=== PATIENT | male | born 1955 | race Caucasian/White ===

== ENCOUNTER 2020-07-15 06:55 | Outpatient (NON) | payer BC, SELFPAY ==
[2020-07-15 16:41] LABS: SARS-CoV-2 RNA PCR Positive
== END 2020-07-15 06:56 ==
PROVIDERS: Visit Provider Family Medicine
DX: U07.1 COVID-19 (principal)
CPT/HCPCS: 87635; C9803; U0003

== ENCOUNTER 2021-11-24 00:43 | Day surgery (SDC) | payer BC, SELFPAY ==
[2021-11-14 14:44] VITALS: BMI 26.1
--- NOTE | 2021-11-24 11:33 | PM.HPGS ---
History of Present Illness History of Present Illness Consent: Risks, benefits, and alternatives have been discussed and questions answered. Patient agrees to proceed with procedure. Chief complaint: neoplasm screening Narrative: Stefan Becerra is a 66 year old male Was referred for colon cancer screening. Review of Systems Review of Systems: All systems reviewed & are unremarkable except as noted in HPI and below PMFSH Past Medical History Medical History A-fib SVT (supraventricular tachycardia) Family History Family History Mother Cerebrovascular accident, Onset Age: 84 Unknown Cancer Social History Social History Smoking status: Never smoker Alcohol intake: current Drinks per week: 2 Substance use: never Living arrangements: with family Spiritual care concerns: No Meds Home Medications and Allergies Home Medications Medication Instructions Recorded Confirmed Type rivaroxaban 20 mg tablet 20 mg PO DAILY 10/21/21 11/14/21 History sotalol 80 mg tablet 80 mg PO BID tablet 10/21/21 11/14/21 History Allergies Allergy/AdvReac Type Severity Reaction Status Date / Time No Known Allergies Allergy Verified 11/14/21 14:42 Exam Resp: Auscultation: clear to auscultation bilaterally Cardio: Rate: regular rate Rhythm: regular rhythm GI: GI Palp: Yes Soft to palpation and No Tenderness to palpation present (GI) Assessment and Plan Assessment and plan (1) Colon cancer screening: Code(s): Z12.11 - Encounter for screening for malignant neoplasm of colon Status: Acute Assessment and Plan: Colonoscopy with possible biopsy or polypectomy or cautery or injection of substances.
[2021-11-24 11:55] VITALS: BP 118/79; PULSE 72; RESP 16; TEMP 36.4; O2SAT 100
[2021-11-24] MEDS: LACTATED RINGERS 1,000 ML 150 ML IV CONT (11:59)
--- NOTE | 2021-11-24 12:19 | P.PNAN_ITS ---
Anes - Initial Pre Proc Eval Procedure: Operation Date: 11/24/21 13:00 Proposed Procedures p Screening Colonoscopy - Hollis Leiva MD Date/Time: 11/24/21 12:19 Surgeon: Hollis Leiva MD Pre Op Diagnosis: neoplasm screening Patient Data Age: 66 Gender: M Height: 1.8 m Weight: 85.5 kg Last Vital Signs Temp 97.6 F 11/24/21 11:55 Pulse 72 11/24/21 11:55 Resp 16 11/24/21 11:55 BP 118/79 11/24/21 11:55 Pulse Ox 100 11/24/21 11:55 Allergies Allergy/AdvReac Type Severity Reaction Status Date / Time No Known Allergies Allergy Verified 11/14/21 14:42 Home Medications Medication Instructions Recorded Confirmed Type rivaroxaban 20 mg tablet 20 mg PO DAILY 10/21/21 11/24/21 History sotalol 80 mg tablet 80 mg PO BID tablet 10/21/21 11/24/21 History Patient hx anesthesia problems: none Family hx anesthesia problems: none Results Review: All pre-operative results and documents have been reviewed as part of the pre-operative evaluation. [facility] Past Medical History Medical History A-fib SVT (supraventricular tachycardia) Family History Family History Mother Cerebrovascular accident, Onset Age: 84 Unknown Cancer Social History Social History Smoking status: Never smoker Alcohol intake: current Drinks per week: 2 Substance use: never Living arrangements: with family Spiritual care concerns: No Anes - Eval Final PreProcedure Day of Procedure 11/24/21 12:19 Patient weight: normal Heart: regular rate and rhythm Lungs: clear to auscultation Airway: Mallampati scale class II Neurological: alert and oriented Last oral intake: >/= 8 hours ASA classification: III Emergent: no Anesthetic plan: proceed Anesthesia type and monitoring: general GIVS and standard monitoring Results Review: All pre-operative results and documents have been reviewed as part of the pre-operative evaluation. Informed Consent: The patient's anesthetic plan and its attendant risks and benefits were discussed with the patient/family/POA. Questions were solicited and answers provided to the satisfaction of the patient/family/POA.
[2021-11-24 13:09] VITALS: BP 99/66; PULSE 64; RESP 16; O2SAT 96
[2021-11-24 13:19] VITALS: BP 94/65; PULSE 70; RESP 16; O2SAT 95
[2021-11-24 13:24] VITALS: BP 105/68; PULSE 66; RESP 16; O2SAT 100
== END 2021-11-24 13:33 | disposition home or self-care (01) ==
PROVIDERS: PCP Family Medicine; Visit Provider Internal Medicine Gastroenterology
PROC: 0DJD8ZZ Inspection of Lower Intestinal Tract, Via Natural or Artificial Opening Endoscopic (ICD-10-PCS; CPT 45378; principal; 2021-11-24 13:00)
DX: Z12.11 Encounter for screening for malignant neoplasm of colon (principal); D12.0 Benign neoplasm of cecum; K62.1 Rectal polyp; K57.30 Diverticulosis of large intestine without perforation or abscess without bleeding; I48.91 Unspecified atrial fibrillation; I47.1 Supraventricular tachycardia; Z79.01 Long term (current) use of anticoagulants
CPT/HCPCS: 45385; 88305; J2704; J7120

== ENCOUNTER 2021-12-12 07:56 | Outpatient (CLI) | payer BC, SELFPAY ==
--- NOTE | 2021-12-12 08:45 | ECG_ITS ---
Measurements Intervals [place] Rate: 52 P: 41 IN: 173 QRS: 29 QRSD: 98 T: 3 QT: 411 QTc: 383 Interpretive Statements SINUS BRADYCARDIA NONSPECIFIC ST AND T CHANGE ABNORMAL ECG NO PREVIOUS ECG AVAILABLE FOR COMPARISON Electronically Signed On 12-12-2021 15:23:07 CDT by Candelario Garcia M.D.
== END 2021-12-12 07:57 | disposition home or self-care (01) ==
LOC: ANHSURGERY 08:00
PROVIDERS: PCP Family Medicine; Visit Provider Surgery
DX: Z01.818 Encounter for other preprocedural examination (principal); K40.20 Bilateral inguinal hernia, without obstruction or gangrene, not specified as recurrent; I49.9 Cardiac arrhythmia, unspecified; R94.31 Abnormal electrocardiogram [ECG] [EKG]
CPT/HCPCS: 36415; 86850; 86900; 86901; 93005

== ENCOUNTER 2021-12-16 01:13 | Day surgery (SDC) | payer BC, SELFPAY ==
--- NOTE | 2021-12-03 15:21 | PC.NURSE ---
Report to the Outpatient Waiting Room, entrance under the green pavilion located off [facility], at time _0930_ on date _12/16/21_. OR Time: _1130_. - You and your visitor will be asked a series of questions to screen for COVID 19 for your protection. - A mask is required within the hospital. One visitor will be allowed to accompany the patient into the hospital. Patients visitor will be instructed to remain with patient at all times or leave the building. We will allow the visitor to come back to the postoperative area when patient is ready. Preoperative COVID Testing Requirements: NONE Patients may have clear liquids (water, carbonated beverages, clear teas, apple juice) until 3 hours prior to surgery (0830 AM) with a maximum of 20 ounces. - No food from midnight until time of surgery Take the following medications with a SIP of water the morning of surgery: _SOTALOL_ Medications to discontinue __ XARELTO PER DR. MARTINEZ'S INSTRUCTIONS___ Please no deodorant, or body powder the day of surgery. No jewelry (including any body piercings) or valuables the day of surgery, leave them at home. Please take a shower or bath the night before, or the morning of, surgery with an antibacterial soap. Wear comfortable, loose fitting clothing. - Jewelry must be removed prior to entering the operating room. Rings and piercings that are not removed may be cut off. - The hospital will not accept responsibility for valuables. - Please leave all valuables, including medications, at home the day of surgery. If you are going home after surgery, a licensed taxi cab driver must drive you home. - NO public transportation without another adult. - We recommend that an adult stay with you for 24 hours following discharge. - We also recommend that you do not drive, make important decision, drink alcoholic beverages, or take any drugs that were not prescribed by your health care provider for at least 24 hours after your discharge time. Follow any additional instructions given to you from your surgeon - ERMELINDA SHOWCHARIS AM OF SURGERY Telephone instructions given to ____PT and asked if any additional questions and then verbalized understanding. Patient advised to call surgeon office or pre surgery nurse liaison [phone] if any additional questions.
[2021-12-03 15:25] VITALS: BMI 26.2
[2021-12-16] VITALS (8 sets, daily range): BP systolic 119–137; BP diastolic 73–88; PULSE 58–69; RESP 13–18; TEMP 36.8–36.9; O2SAT 95–100
[2021-12-16] MEDS: LACTATED RINGERS 1,000 ML 30 ML IV CONT ×3 (09:00→14:24)
--- NOTE | 2021-12-16 10:00 | P.PNAN_ITS ---
Anes - Initial Pre Proc Eval Procedure: Operation Date: 12/16/21 11:30 Proposed Procedures p Laparoscopic Bilateral Inguinal Hernia Repair with Mesh, Davinci Assisted - Ranulfo Ness DO s Open Umbilical Hernia Repair - Rnaulfo Ness DO Date/Time: 12/16/21 10:00 Surgeon: Ranulfo Ness DO Pre Op Diagnosis: Baldev Ing Hernia, Umbilical Hernia Patient Data Age: 66 Gender: M Height: 1.8 m Weight: 85.5 kg Allergies Allergy/AdvReac Type Severity Reaction Status Date / Time No Known Allergies Allergy Verified 11/14/21 14:42 Home Medications Medication Instructions Recorded Confirmed Type rivaroxaban 20 mg tablet 20 mg PO DAILY 10/21/21 12/03/21 History sotalol 80 mg tablet 80 mg PO BID tablet 10/21/21 12/03/21 History Patient hx anesthesia problems: none Family hx anesthesia problems: none Results Review: All pre-operative results and documents have been reviewed as part of the pre-operative evaluation. [facility] Past Medical History Medical History (Updated 11/24/21 @ 11:34 by Hollis Leiva MD) A-fib SVT (supraventricular tachycardia) Surgical History Surgical History (Updated 12/16/21 @ 10:01 by Miguel Olmos DO) History of cardiac radiofrequency ablation Family History Family History Mother Cerebrovascular accident, Onset Age: 84 Unknown Cancer Social History Social History Smoking status: Never smoker Second hand tobacco smoke exposure: No Alcohol intake: current Drinks per week: 2 Substance use: never Substance use type: does not use Living arrangements: with family Spiritual care concerns: No Anes - Eval Final PreProcedure Day of Procedure 12/16/21 10:00 Patient weight: overweight Heart: regular rate and rhythm Lungs: clear to auscultation and normal air movement Airway: Mallampati scale class II Neurological: alert and oriented Last oral intake: >/= 8 hours ASA classification: III Emergent: no Anesthetic plan: proceed Anesthesia type and monitoring: general ETT and standard monitoring Results Review: All pre-operative results and documents have been reviewed as part of the pre-operative evaluation. Informed Consent: The patient's anesthetic plan and its attendant risks and benefits were discussed with the patient/family/POA. Questions were solicited and answers provided to the satisfaction of the patient/family/POA.
[2021-12-16] MEDS: KETOROLAC 15 MG/ML VIAL (*BKC) IV PUSH (10:05)
[2021-12-16] MEDS: ACETAMINOPHEN 500 MG TABLET 1000 MG PO (10:05)
--- NOTE | 2021-12-16 10:56 | PM.IMHP ---
H&P: HPI History of Present Illness Date/Time: 12/16/21 10:56 Chief Complaint: Bilateral inguinal hernia, umbilical hernia Narrative: This is a 66-year-old man who presents for bilateral inguinal hernia repair and umbilical hernia repair. He denies any changes since last seen in the office. Review of Systems Review of Systems: All systems reviewed & are unremarkable except as noted in HPI and below Constitutional: Constitutional: Denies chills, Denies fever(s), Denies headache(s) and Denies weight loss Eyes: Eyes: Denies change in vision ENT: Denies dizziness, Denies headache(s), Denies neck mass and Denies throat swelling Cardiovascular: Cardiovascular: Denies chest pain, Denies lightheadedness and Denies dyspnea Respiratory: Respiratory: Denies cough, Denies dyspnea and Denies wheezing Gastrointestinal: Gastrointestinal: Denies abdominal pain, Denies change in bowel habits, Denies nausea and Denies vomiting Genitourinary: Genitourinary: Denies hematuria and Denies dysuria Musculoskeletal: Musculoskeletal: Reports as per HPI Integumentary/Breasts: Skin/Breast: Reports as per HPI Neurologic: Denies dizziness and Denies headache(s) Allergic/Immunologic: Allergic/Immunologic: Denies throat swelling and Denies wheezing PMFSH Past Medical History Medical History (Updated 11/24/21 @ 11:34 by Hollis Leiva MD) A-fib SVT (supraventricular tachycardia) Surgical History Surgical History (Updated 12/16/21 @ 10:01 by Miguel Olmos DO) History of cardiac radiofrequency ablation Family History Family History Mother Cerebrovascular accident, Onset Age: 84 Unknown Cancer Social History Social History Smoking status: Never smoker Second hand tobacco smoke exposure: No Alcohol intake: current Drinks per week: 2 Substance use: never Substance use type: does not use Living arrangements: with family Spiritual care concerns: No Meds Home Medications and Allergies Home Medications Medication Instructions Recorded Confirmed Type rivaroxaban 20 mg tablet 20 mg PO DAILY 10/21/21 12/16/21 History sotalol 80 mg tablet 80 mg PO BID tablet 03/01/22 04/26/22 History Allergies Allergy/AdvReac Type Severity Reaction Status Date / Time No Known Allergies Allergy Verified 11/14/21 14:42 Vital Signs Vital Signs - 24 hr 12/16/21 09:15 Temperature 36.8 C Pulse Rate 58 L Respiratory Rate 16 Blood Pressure 129/73 Pulse Oximetry 100 Exam Const: General: no acute distress and alert Orientation/consciousness: patient oriented x3 HENMT: Head: normocephalic and atraumatic Ears: hearing grossly normal bilaterally General nose exam: Normal nares present Mouth: Yes Normal oral and palatal mucosa present Eyes: Periorbital: periorbital findings normal Sclera: sclerae normal EOM: EOMs intact bilaterally Neck: Neck: normal visual inspection, no lymphadenopathy and trachea midline Chest: Chest palpation & inspection: normal inspection of the chest Resp: Effort & Inspection: normal respiratory effort Auscultation: clear to auscultation bilaterally Cardio: Jugular venous distension: no JVD Rate: regular rate Rhythm: regular rhythm Heart sounds: S1 normal heart sound present and S2 normal heart sound present Peripheral pulses: Peripheral pulses 2+ throughout GI: Inspection: normal to inspection GI Palp: Yes Soft to palpation, No Tenderness to palpation present (GI), No Guarding due to palpation present (GI), Yes Hernia present (1 cm umbilical hernia) and No Rebound tenderness present Percussion: Yes normal to percussion Auscultation: normal bowel sounds : General: Yes no CVA tenderness Scrotum: inguinal hernia bilateral Back/Spine/Pelvis: Back: no CVA tenderness Neuro: General: patient oriented x3, no focal motor deficits and CN's II-XI intact onel
--- NOTE | 2021-12-16 10:58 | WPDHPUPDATE1 ---
History and Physical Update Update Date/Time: 12/16/21 10:58 History and Physical has been reviewed, including an updated exam of the patient. There are NO changes in the patient's condition. Risks, benefits, and alternatives have been discussed and questions answered. Patient agrees to proceed with procedure.
[2021-12-16] MEDS: ceFAZolin 2 GM/D5W 50 ML 2 GM/50 ML BAG IVPB (11:26)
--- NOTE | 2021-12-16 13:10 | W.PM.PROC2 ---
Procedure Note - Detailed Date of Procedure 12/16/21 Pre-op Diagnosis Bilateral inguinal hernia, umbilical hernia Post-op Diagnosis Same Procedure Performed 1. Laparoscopic bilateral inguinal hernia repair with mesh, da Binh assisted 2. Open umbilical hernia repair Surgeon Ranulfo Ness, Anesthesia General and Local (0.5% bupivacaine with epinephrine) Indications This is a 66-year-old man who presented with a right groin bulge that he had noticed initially about 10 years ago. It was minimally symptomatic at the time but has recently become more symptomatic. It does reduce when he lays down. He was found to have a left inguinal hernia on physical exam but does not experience any symptoms from this. The hernia on the right side was large but reducible. He was also found to have a small supraumbilical hernia on exam. Discussions were made with the patient about treatment options and decision was made to proceed with robotic assisted laparoscopic bilateral inguinal hernia repair with mesh, and open umbilical hernia repair. Findings Laparoscopic bilateral inguinal hernia repair was performed. The patient was found to have a large direct inguinal defect on the right side and had a moderate-sized direct inguinal defect on the left. An extra-large right 3DMax mid mesh was placed on the right side overlying the entire right myopectineal orifice. A large left 3DMax mid was placed on the left side overlying the entire left myopectineal orifice. The umbilical hernia measured about 8 mm and this was repaired using 0 Ethibond [id number] sutures. A total of 3 sutures were placed transversely to approximate the fascia. The umbilical hernia sac was excised and sent to the lab for pathology. Description of Procedure Procedure as well as risks, benefits, and alternatives were discussed with the patient. Written consent was obtained and placed in chart prior to procedure. Patient was brought back to surgical suite. He was placed supine on operating table. Time-out was done to confirm patient and procedure. He was then intubated by Anesthesia Department. His abdomen was prepped and draped in sterile fashion using chlorhexidine prep. 0.5% bupivacaine with epinephrine was infiltrated at each location for incision. A 2 cm transverse incision was made just superior to the umbilicus using a 15 blade scalpel. Blunt dissection was carried out down to the linea alba. The hernia sac was carefully dissected free from the umbilical skin and subcutaneous space using electrocautery. The hernia sac was excised at the level of the fascia. The peritoneal cavity was then entered through the hernia defect and an 8 mm camera port was inserted. Carbon dioxide insufflation was used to create a pneumoperitoneum. A camera was inserted and the abdominal cavity was inspected. The patient was placed in slight Trendelenburg position. An 8 millimeter incision was made on the right lateral abdomen and an 8 millimeter trocar was inserted under direct visualization. Another 8 millimeter incision was made in the left lateral abdomen and an 8 millimeter trocar was inserted under direct visualization. The robotic arms were brought up to the patient's bedside and secured to the ports. The camera and instruments were inserted. I then moved over to the robotic console and took control of the camera and instruments. After careful inspection of the abdominal cavity, I began scoring the peritoneum along the right lower quadrant using scissors with electrocautery. The preperitoneal plane was entered and this was carefully dissected caudally along the inferior epigastric vessels. Careful dissection with scissors with electrocautery and blunt dissection was used to continue this dissection. I dissected far enough laterally to allow for mesh placement, and also dissected medially to identify the pubic arch and Rudy's ligament. The hernia sac was identified and carefully dissected posteriorly.
[2021-12-16] MEDS: fentaNYL CITRATE INJ (*CRX) 100 MCG/2 ML VIAL 25 MCG IV PUSH ×4 (13:40→13:54)
[2021-12-16] MEDS: ONDANSETRON INJ 4 MG/2 ML VIAL IV PUSH (14:20)
[2021-12-16] MEDS: SCOPOLAMINE 1.5 MG PATCH TRANSDERM (14:41)
== END 2021-12-16 15:17 | disposition home or self-care (01) ==
PROVIDERS: PCP Family Medicine; Visit Provider Surgery
PROC: 8E0Y4CZ Robotic Assisted Procedure of Lower Extremity, Percutaneous Endoscopic Approach (ICD-10-PCS; CPT 49650; principal; 2021-12-16 11:30)
PROC: (CPT 49650; 2021-12-16 11:30)
DX: K40.20 Bilateral inguinal hernia, without obstruction or gangrene, not specified as recurrent (principal); K42.9 Umbilical hernia without obstruction or gangrene; I48.91 Unspecified atrial fibrillation; I47.1 Supraventricular tachycardia; Z79.01 Long term (current) use of anticoagulants
CPT/HCPCS: 49650; S2900; 88302; A9270; C1781; J0690; J1100; J1885; J2405; J2704; J2710; J3010; J7120

== ENCOUNTER 2023-08-11 08:14 | Outpatient (CLI) | payer MEDICARE, SELFPAY ==
[2023-08-11 19:02] LABS: Basophils Percent Auto 0.4 % (0.2-1.2); Eosinophils Absolute Auto 0.3 K/mm3 (0-0.3); Eosinophils Percent Auto 4.5 % (0-4.4); Hematocrit 43.2 % (42.0-52.0); Immature Granulocyte Absolute 0.05 K/mm3 (0.00-0.031); Immature Granulocyte Percent A 0.7 % (0-0.5); Lymphocytes Absolute Auto 0.96 K/mm3 (0.9-3.2); Lymphocytes Percent Auto 13.6 % (18.3-44.2); Mean Corpuscular HGB Conc 32.4 g/dl (32-36); Mean Corpuscular Hemoglobin 30.8 pg (26-34); Mean Corpuscular Volume 94.9 fl (80-100); Mean Platelet Volume 9.6 fl (7.4-10.4); Monocytes Absolute Auto 1.2 K/mm3 (0.1-0.6); Monocytes Percent Auto 16.9 % (2.6-8.5); Neutrophils Absolute Auto 4.5 K/mm3 (1.3-6.7); Neutrophils Percent Auto 63.9 % (45.5-73.1); Platelet Count Result 602 k/mm3 (150-375); Red Blood Count 4.55 M/mm3 (4.6-6.20); White Blood Count 7.1 K/mm3 (4.5-10.0)
[2023-08-11 19:41] LABS: Alanine Aminotransferase 45 U/L (6-50); Albumin Level 4.4 g/dL (3.5-5.1); Alkaline Phosphatase 52 U/L (38-126); Anion Gap 5 mmol/L (8-16); Aspartate Amino Transferase 40 U/L (17-59); Bilirubin,Total 0.8 mg/dL (0.2-1.3); Blood Urea Nitrogen 19 mg/dL (9-20); Calcium 9.8 mg/dL (8.4-10.2); Carbon Dioxide 30 mmol/L (22-30); Chloride 101 mmol/L (98-107); Cholesterol 185 mg/dL (0-200); Estimated Glomerular Filt Rate > 60; Glucose 78 mg/dL (65-110); HDL Direct 43 mg/dL; Potassium 4.8 mmol/L (3.4-5.0); Sodium 136 mmol/L (137-145); Triglycerides 130 mg/dL (<150)
[2023-08-11 19:53] LABS: LDL Cholesterol Direct 102 mg/dL
[2023-08-11 20:10] LABS: Prostate Specific Antigen 6.4 ng/mL (< OR = 4.0)
== END 2023-08-11 08:15 | disposition home or self-care (01) ==
LOC: ANHGOSHLAB 08:15
PROVIDERS: PCP Family Medicine; Visit Provider Family Medicine
DX: Z13.220 Encounter for screening for lipoid disorders (principal); R53.83 Other fatigue; Z12.5 Encounter for screening for malignant neoplasm of prostate; Z13.228 Encounter for screening for other metabolic disorders; E78.5 Hyperlipidemia, unspecified
CPT/HCPCS: 36415; 80053; 80061; 84153; 85025; G0103

== ENCOUNTER 2023-09-15 10:05 | Outpatient (CLI) | payer OTHER, SELFPAY ==
[2023-09-15 14:02] LABS: Basophils Percent Auto 0.3 % (0.2-1.2); Eosinophils Absolute Auto 0.3 K/mm3 (0-0.3); Eosinophils Percent Auto 4.8 % (0-4.4); Hematocrit 44.7 % (42.0-52.0); Hemoglobin 14.3 g/dL (14.0-18.0); Immature Granulocyte Absolute 0.02 K/mm3 (0.00-0.031); Immature Granulocyte Percent A 0.3 % (0-0.5); Lymphocytes Absolute Auto 0.86 K/mm3 (0.9-3.2); Lymphocytes Percent Auto 13.7 % (18.3-44.2); Mean Corpuscular Hemoglobin 30.4 pg (26-34); Mean Corpuscular Volume 94.9 fl (80-100); Mean Platelet Volume 9.6 fl (7.4-10.4); Monocytes Percent Auto 15.1 % (2.6-8.5); Neutrophils Absolute Auto 4.1 K/mm3 (1.3-6.7); Neutrophils Percent Auto 65.8 % (45.5-73.1); Platelet Count Result 588 k/mm3 (150-375); Red Blood Count 4.71 M/mm3 (4.6-6.20); Red Cell Distribution Width 12.9 % (11.5-14.5); White Blood Count 6.3 K/mm3 (4.5-10.0)
[2023-09-15 15:49] LABS: Prostate Specific Antigen 5.3 ng/mL (< OR = 4.0)
== END 2023-09-15 10:06 | disposition home or self-care (01) ==
LOC: ANHGOSHLAB 10:08
PROVIDERS: PCP Family Medicine; Visit Provider Family Medicine
DX: R97.20 Elevated prostate specific antigen [PSA] (principal); R53.83 Other fatigue
CPT/HCPCS: 36415; 84153; 85025

== ENCOUNTER 2024-03-21 09:43 | Outpatient (CLI) | payer MEDICARE, SELFPAY ==
--- NOTE | 2024-04-10 20:59 | WPDSLEEPSTUD ---
Sleep Study Date of Study: 03/21/24 Ordering Provider: Chato Wang DO Interpreting Physician: Ling Rangel DO Sleep Study Type: Split Polysomnogram Height: 1.83 m Weight: 90.718 kg Body Mass Index: 27.1 Neck Circumference (inches): 16 [place]: 6 Reason for Sleep Study Snoring, unrefreshing sleep Sleep History The patient is a 69-year-old male that had a sleep study ordered by his primary care physician for evaluation of sleep apnea.? He denies awakening from sleep short of breath.? He rarely awakens at night with heartburn, belching or cough.? He frequently snores and it is occasionally loud enough that others complain.? He denies waking up gasping for air throughout the night.? He denies having breathing problems at night observed by himself or others.? He denies sweating excessively at night.? He denies having heart palpitations or irregular heartbeats during the night.? He denies falling asleep during the day and never while driving.? He denies sleep paralysis, cataplexy and hypnagogic/hypnopompic hallucinations.? He denies having trouble at school or work due to sleepiness.? He denies feeling afraid of going to sleep. He denies having nightmares.? He rarely remembers his dreams.? He occasionally has thoughts racing through his mind.? He denies feeling sad, depressed and anxious.? He denies having muscular tension.? He occasionally notices parts of his body jerk.? He rarely kicks during the night.? He denies having crawling and aching feelings in his legs but occasionally has leg pain during the night.? She rarely grinds his teeth during sleep but never awakens with morning jaw pain.? He is occasionally bothered by pain during the day but never awakened by pain during the night.? He frequently wakes up feeling stiff in the morning.? He frequently wakes up with sore or achy muscles.? He occasionally wakes up with pain in the neck, spine and other joints. He goes to bed at 10:45 p.m. on both weekdays and weekends.? It takes him 15-20 minutes to fall asleep.? He wakes up once throughout the night for unknown reasons but is able to fall back asleep within a few minutes.? He wakes up at 6:00 a.m. on both weekdays and weekends.? He typically gets 6-7 hours of sleep per night.? He will stay in bed for 5-10 minutes after waking up in the morning.? He currently lives with his and adult/children.? He denies consuming any caffeinated beverages within 2 hours of bedtime.? He denies engaging in physical exercise before bedtime.? He denies reading before falling asleep.? He denies taking naps in the afternoon or the evening.? He consumes 2 cups of caffeinated beverage per day.? He consumes 2-3 alcoholic beverages per week.? He denies tobacco and recreational drug use. [facility] Past Medical History Medical History A-fib SVT (supraventricular tachycardia) Surgical History Surgical History H/O umbilical hernia repair 12/16/21 History of cardiac radiofrequency ablation History of inguinal hernia repair, bilateral b/l inguinal hernia repair w mesh davinci assisted 12/16/21 Family History Family History Mother Cerebrovascular accident, Onset Age: 84 Unknown Cancer Social History Social History Social History: caffeine daily - 2 cups daily Smoking status: Never smoker Second hand tobacco smoke exposure: No Alcohol intake: current Drinks per week: 2 Alcohol use details: social Substance use: never Substance use type: does not use Do You Feel Safe in your Home?: Yes Lack of Transportation: No Lack of Food: Never True Current Housing: I Have Housing Concerned About Future Housing: No Difficulty Paying Gas/Electric Bills: No Difficulty Paying for Meds: No Currently Unemploy
[2024-04-11 10:38] VITALS: BMI 27.1
== END 2024-03-22 06:42 | disposition home or self-care (01) ==
PROVIDERS: PCP Family Medicine; Visit Provider Family Medicine
DX: G47.33 Obstructive sleep apnea (adult) (pediatric) (principal); G47.10 Hypersomnia, unspecified
CPT/HCPCS: 95811

== ENCOUNTER 2025-01-01 00:13 | Day surgery (SDC) | payer MEDICARE, SELFPAY ==
[2024-12-22 10:13] VITALS: BMI 28.5
--- NOTE | 2024-12-25 14:17 | SUR.PREOP ---
Spoke with patient in regards to his Xarelto. Confirmed that his last dose is to be taken on 12/28/2024 and the endoscopist will inform him after the procedure when to resume.
--- OUTSIDE RECORDS SUMMARY | 2025-01-01 00:15 | XMS_ITS | Referral Summary ---
Author Organization [facility] Address [address] [place] [address] Care Team Providers Care Professional Driver Name Role Phone Chato Wang DO Primary Care Provider [phone] Encounters Date Type Department Care Team Description 12/25/2024 Telephone [facility] Cardiology [address] [facility] [address] [place] [address] Candelario Garcia MD from Last 3 Months Allergies No known active allergies Medications tamsulosin (FLOMAX) 0.4 mg extended release capsule 1 capsule (0.4 mg total) Active rivaroxaban (Xarelto) 20 mg tabletIndications :Persistent atrial fibrillation (HCC) TAKE 1 TABLET BY MOUTH EVERY DAY 90 tablet 3 4 Active sotaloL (BETAPACE) 80 mg tabletIndications :Persistent atrial fibrillation (HCC) Take 1 tablet by mouth twice daily 180 tablet 3 4 Active Active Problems Problem Noted Date Diagnosed Date Paroxysmal atrial fibrillation 02/17/2018 Persistent atrial fibrillation 04/15/2017 Social History Tobacco Use Types Packs/Day Years Used Date Smoking Tobacco: Never Smokeless Tobacco: Never Tobacco Cessation:Counseling Given: Not Answered Alcohol Use Standard Drinks/Week Comments Yes 0 (1 standard drink = 0.6 oz pur e alcohol) rarely Personal Safety Answer Date Recorded Getting School Help Needed Not on file 10/19 Sex and Gender Information Value Date Recorded Sex Assigned at Not on file Legal Sex Male 1:11 PM CDT Gender Identity Not on file Sexual Orientation Not on file Last Filed Vital Signs Vital Sign Reading Time Taken Comments Blood Pressure 102/60 04/04/2024 8:25 AM CDT Pulse 66 04/04/2024 8:25 AM CDT Temperature - - Respiratory Rate 12 05/04/2017 4:17 PM CDT Oxygen Saturation 99% 04/04/2024 8:25 AM CDT Inhaled Oxygen Concentration - - Weight 92.3 kg (203 lb 8 oz) 04/04/2024 8:25 AM CDT Height 182.9 cm (6') 04/04/2024 8:25 AM CDT Body Mass Index 27.6 04/04/2024 8:25 AM CDT Plan of Treatment Not on file Insurance [employer] MEDICARE GOLD Care Teams Professional Driver Relationship Specialty Start Date End Date Chato Wang DO [facility] [place] [address] PCP - General Family Medicine 04/01/23
--- OUTSIDE RECORDS SUMMARY | 2025-01-01 00:15 | XMS_ITS | Clinical Summary ---
Author Organization [facility] Address [address] [place] [address] Care Team Providers Care Flow Match Sofa Cutter Name Role Phone Chato Wang Primary Care Provider [phone] Source Comments [facility],non-owned Affiliates and Associated Physician Practices is amultiple site organization consisting of ambulatory clinics and hospital sitesin [place], [place], [place]. This disclosure is being madepursuant to the Care Everywhere program and may not contain all information available regarding this patient. Last updated 18.[facility] Allergies No known active allergies Medications * Be aware that medications may not be up to date on this document. Alwaysverify current medications with the patient. Xarelto 20 MG tablet Take 1 (one) tablet by mouth once daily 09/22/2023 Active sotalol (Betapace) 80 MG tablet Take 1 (one) tablet by mouth 2 times daily 07/08/2023 Active tamsulosin (Flomax) 0.4 MG capsule TAKE 1 CAPSULE BY MOUTH EVERY DAY AT THE SAME TIME EACH DAY AFTER MEALS 90 capsule 1 07/05/2024 Active Active Problems Problem Noted Date Diagnosed Date MIRTHA (obstructive sleep apnea) 06/23/2024 Paroxysmal atrial fibrillation 02/17/2018 Encounters Date Type Department Care Team Description 12/31/2024 Refill [facility] - Urology [address] [place] [address] Kathryn Garcia, MUSEUM INFORMATICS SPECIALIST-ELECTRONIC IMAGING SYSTEM OPERATOR Refill Request from Last 3 Months Family History Medical History Relation Name Comments Leukemia Father CVA Mother Relation Name Status Comments Father Mother Social History Tobacco Use Types Packs/Day Years Used Date Smoking Tobacco: Never Smokeless Tobacco: Never Tobacco Cessation:Counseling Given: Not Answered Alcohol Use Standard Drinks/Week Comments Yes 2 (1 standard drink = 0.6 oz pure alcohol) maybe a couple of beers per week Sex and Gender Information Value Date Recorded Sex Assigned at Not on file Legal Sex Male 9:45 AM CDT Gender Identity Not on file Sexual Orientation Not on file Last Filed Vital Signs Vital Sign Reading Time Taken Comments Blood Pressure 121/75 06/23/2024 10:50 AM CDT Pulse 56 06/23/2024 10:50 AM CDT Temperature 36.6 C (97.8 F) 06/23/2024 10:50 AM CDT Respiratory Rate 18 06/23/2024 10:5 0 AM CDT Oxygen Saturation 95% 06/23/2024 10: 50 AM CDT Inhaled Oxygen Concentration - - Weight 95.2 kg (209 lb 12.8 oz) 024 10:50 AM CDT Height 182.9 cm (6') 06/23/2024 10:50 AM CDT Body Mass Index 28.45 06/23/2024 10:50 AM CDT Plan of Treatment Health Maintenance Due Date Last Done Comments COLOGUARD (AGES 45-75) - COL ON CA SCREENING 1955 COLON MONITORING 1955 COLONOSCOPY - COLON CA SCREENING 1955 CT COLONOGRAPHY - COLON CA SCREENING 1955 Colorectal Cancer Screening 1955 FIT - COLON CA SCREENING 1955 FLEX SIG - COLON CA SCREENING 1955 HEPATITIS C SCREENING 01/16/1973 DTAP/TDAP/TD VACCINES (1 - Tdap) 1974 PNEUMOCOCCAL VACCINE 50+ (1 of 1 - PCV) 2005 ZOSTER VACCINE (1 of 2) 2005 SCREENING FOR DIABETES 10/13/2023 COVID-19 VACCINE ( - 2023-2 5 season) 2024 DEPRESSION SCREENING 08/23/2024 MEDICARE AWV CALENDAR YEAR 2024 INFLUENZA VACCINE (Season Ended) 2025 05/29/2009 LIPID TESTING 04/04/2029 04/04/2024, 04/01/2023 Respiratory Syncytial Virus (RSV) Vaccine Pt: or over 60 yrs (1 - 1-dose 75+ series) 2030 HEPATITIS B VACCINE Aged Out No longe r eligible based on patient's age to complete this topic HIB VACCINE Aged Out No longer eligi ble based on patient's age to complete this topic HPV VACCINE Aged Out No longer eligi ble based on patient's age to complete this topic MENINGOCOCCAL (Group B) VACCINE SHARED DECISION-MAKING Aged Out No longer eligible based on patient's age to complete this topic MENINGOCOCCAL GROUPS A/C/Y/W VACCINE Aged Out No longer eligible b ased on patient's age to complete this topic Insurance AENA MEDICARE ADV Care Teams Flow Match Sofa Cutter Relationship Specialty Start Date End Date Chato Wang DO [address] [place] [id number] PCP - General Family Medicine 10/07/23
--- OUTSIDE RECORDS SUMMARY | 2025-01-01 00:15 | XMS_ITS | Encounter Summary ---
Author Organization [facility] Address [address] [facility] [place] [address] Care Team Providers Care Table Setter Name Role Phone Chato Wang DO Primary Care Provider [phone] Reason for Visit * Reason Comments Refill Request Encounter Details Date Type Department Care Team (Late st Contact Info) Description 12/31/2024 Refill [facility] - Urology [address] [place] [address] [address] [place] [address] Kathryn Garcia, TAR CHASER-BUSINESS AREA DIRECTOR [address] [facility] [place] [address] Refill Request Social History Tobacco Use Types Packs/Day Years Used Date Smoking Tobacco: Never Smokeless Tobacco: Never Alcohol Use Standard Drinks/Week Comments Yes 2 (1 standard drink = 0.6 oz pure alcohol) maybe a couple of beers per week Sex and Gender Information Value Date Recorded Sex Assigned at Not on file Legal Sex Male 9:45 AM CDT Gender Identity Not on file Sexual Orientation Not on file documented as of this encounter Plan of Treatment Not on file documented as of this encounter Visit Diagnoses Not on filedocumented in this encounter Care Teams Table Setter Relationship Specialty Start Date End Date Chato Wang DO [facility] [place] [address] PCP - General Family Medicine 10/07/23 documented as of this encounter
--- OUTSIDE RECORDS SUMMARY | 2025-01-01 00:15 | XMS_ITS | Clinical Summary ---
Author Organization [facility] Address [address] [place] [address] Phone Care Team Providers Care Ob/Gyn Physician Name Role Phone Terrence Haro MD Primary Care Provider [phone] Allergies No known active allergies Medications metoprolol succinate ER 24 hour (TOPROL-XL) 100 mg Oral tablet Take 100 mg by mouth 2 times daily. 04/29/2010 Active montelukast (SINGULAIR) 10 mg Oral tablet Take 10 mg by mouth daily. Active dabigatran etexilate (PRADAXA) 150 mg Oral Cap TAKE ONE CAPSULE BY MOUTH TWICE A DAY 180 Cap 1 01/04/2013 Active PRADAXA 150 mg Oral Cap TAKE ONE CAPSULE BY MOUTH TWICE A DAY 180 Cap 1 05/08/2013 Active propafenone (RYTHMOL) 150 mg Tablet TAKE ONE TABLET BY MOUTH EVERY 12 HOURS 60 Tab 1 11/20/2013 Active propafenone (RYTHMOL) 150 mg Tablet Take 1 Tab by mouth every 12 hours. 180 Tab 1 02/06/2014 Active Active Problems Patient Care Coordination No te Formatting of this note migh t be different from the original. [place] - Dr. Miguel Clark Problem Noted Date Diagnosed Date Rapid palpitations Overview (05/20/2010): a history of tachypalpitations SVT (supraventricular tachycardia) Atrial fibrillation Immunizations Immunization Administration Dates Next Due Influenza A (H1N1) Vaccine IM 05/29/2009 Influenza Seasonal Unspecified Formulation IM Family History Medical History Relation Name Comments Cancer Father Other Father leukemia Stroke Mother Relation Name Status Comments Father Mother Social History Tobacco Use Types Packs/Day Years Used Date Smoking Tobacco: Never Alcohol Use Standard Drinks/Week Comments Yes 0 (1 standard drink = 0.6 oz pure alcohol) 2 beers a month / 2 drinks per week Sex and Gender Information Value Date Recorded Sex Assigned at Not on file Legal Sex Male 5:55 AM SURGICAL SCRUB TECHNOLOGIST Gender Identity Not on file Sexual Orientation Not on file Last Filed Vital Signs Vital Sign Reading Time Taken Comments Blood Pressure 108/72 12/16/2012 10:15 AM CDT Pulse 53 12/16/2012 10:15 AM CDT Temperature 35.9 C (96.6 F) 04/29/2010 6:10 AM CDT Respiratory Rate 16 12/16/2012 10:15 AM CDT Oxygen Saturation 98% 12/16/2012 10:15 AM CDT Inhaled Oxygen Concentration - - Weight 88 kg (194 lb) 12/16/2012 10:15 AM CDT Height 185.4 cm (6' 1 ) 12/16/2012 10:15 AM CDT Body Mass Index 25.6 12/16/2012 10:15 AM CDT Plan of Treatment Health Maintenance Due Date Last Done Comments DTAP/TDAP/TD VACCINES (1 - Tdap) 1974 COLORECTAL SCREENING 01/22/2000 Colorectal Cancer Screening 01/22/2000 FIT-DNA Q 3 years 01/22/2000 FIT/FOBT Q 1 year 01/22/2000 Flex Sig/CT Colonography Q 5 years 01/22/2000 PNEUMOCOCCAL VACCINE 50+ YEARS (1 of 1 - PCV) 01/22/20 05 ZOSTER VACCINE (1 of 2) 2005 INFLUENZA VACCINE (#1) 2024 05/29/2009 RSV VACCINE (60+ or ) (1 - 1-dose 75+ series) 2030 Advance Directives For more information, please contact: [phone] * Full Code (Latest Code Status on File) Date Activated Date Inactivated Comments 04/29/2010 5:35 AM 04/29/2010 9:12 PM Care Teams Ob/Gyn Physician Relationship Specialty Start Date End Date Terrence Haro MD [address] [place] [id number] PCP - General Family Practice 04/29/10
--- OUTSIDE RECORDS SUMMARY | 2025-01-01 00:15 | XMS_ITS | Clinical Summary ---
Author Organization [facility] Address [address] [place] [address] Care Team Providers Care Rack Maker Name Role Phone Chato Wang DO Primary Care Provider [phone] Allergies No known active allergies Medications tamsulosin [...] atrial fibrillation 02/17/2018 Persistent atrial fibrillation 04/15/2017 Encounters Date Type Department Care Team Description 12/25/2024 Telephone [facility] Cardiology [address] [place] [address] Candelario Garcia MD from Last 3 Months Surgical History Surgery Date Site/Laterality Comments ABDOMINAL SURGERY 12/15/2021 Medical History Medical History Date Comments Atrial fibrillation (HCC) Supraventricular tachycardia Family History Medical History Relation Name Comments Leukemia Father Other Mother age Relation Name Status Comments Father (Age 88) Mother (Age 88) Social History Tobacco Use Types Packs/Day Years [...] on file Sexual Orientation Not on file Obstetrics History Last Filed Vital Signs Vital Sign Reading [...] 04/04/2024 8:25 AM CDT Plan of Treatment Health Maintenance Due Date Last Done Comments Colon Cancer Screening-Colonoscopy 1955 Depression Screening 1955 Fall Risk Assessment 1955 Hepatitis C Screening 1955 Prostate Cancer Screening-PSA 1955 DTaP/Tdap/Td Vaccine (1 - Tdap) 1966 Hepatitis B Screening 1973 Pneumococcal vaccine 65+ (1 of 1 - PCV) 2005 Zoster Vaccine (1 of 2) 2005 Well Visit 65+ 01/22/2020 Influenza Vaccine Completed 09/13/2024, 11/04/2018 [place] [id number] Care Teams Rack Maker Relationship Specialty Start Date End Date Chato Wang DO [address] [place] [address] [facility] [place] [address] PCP - General Family Medicine 04/01/23
[2025-01-01 13:17] VITALS: BP 134/87; PULSE 70; RESP 18; TEMP 36; O2SAT 100
--- NOTE | 2025-01-01 13:24 | WPDANESEPPF ---
Anes - Initial Pre Proc Eval Procedure: Operation Date: 01/01/25 14:00 Proposed Procedures p Colonoscopy - Edgar Osborn MD Date/Time: 01/01/25 13:24 Surgeon: Edgar Osborn MD Pre Op Diagnosis: Personal history of colon polyps, unspecified Patient Data Age: 69 Gender: M Height: 1.83 m Weight: 94.7 kg Last Vital Signs Temp 36.0 C L 01/01/25 13:17 Pulse 70 01/01/25 13:17 Resp 18 01/01/25 13:17 BP 134/87 01/01/25 13:17 Pulse Ox 100 01/01/25 13:17 O2 Del Method Room Air 01/01/25 13:17 Allergies Allergy/AdvReac Type Severity Reaction Status Date / Time No Known Allergies Allergy Verified 01/01/25 13:16 Home Medications ?Medication ?Instructions ?Recorded ?Confirmed ?Type rivaroxaban 20 mg tablet (Xarelto) 20 mg PO DAILY 10/21/21 01/01/25 History sotalol 80 mg tablet (Betapace) 80 mg PO BID 10/21/21 01/01/25 History tamsulosin 0.4 mg capsule (Flomax) 0.4 mg PO DAILY 03/07/24 01/01/25 History CPAP #1 ea 04/20/24 12/22/24 Rx Patient hx anesthesia problems: none Family hx anesthesia problems: none Results Review: All pre-operative results and documents have been reviewed as part of the pre-operative evaluation. [facility] Past Medical History Medical History A-fib SVT (supraventricular tachycardia) Surgical History Surgical History H/O umbilical hernia repair 12/16/21 History of inguinal hernia repair, bilateral b/l inguinal hernia repair w mesh davinci assisted 12/16/21 History of cardiac radiofrequency ablation Family History Family History Mother Cerebrovascular accident, Onset Age: 84 Unknown Cancer Social History Social History Social History: caffeine daily - 2 cups daily Smoking status: Never smoker Second hand tobacco smoke exposure: No Alcohol intake: current Drinks per week: 2 Alcohol use details: social Substance use: never Substance use type: does not use Do You Feel Safe in your Home?: Yes Lack of Transportation: No Lack of Food: Never True Current Housing: I Have Housing Concerned About Future Housing: No Difficulty Paying Gas/Electric Bills: No Difficulty Paying for Meds: No Currently Unemployed: No Difficulty w/ Childcare or Family Care: No Living arrangements: with family Occupation/Education: occupation Spiritual care concerns: No Anes - Eval Final PreProcedure Day of Procedure 01/01/25 13:24 Patient weight: overweight Heart: regular rate and rhythm Lungs: clear to auscultation Airway: Mallampati scale class II Neurological: alert and oriented Last oral intake: >/= 8 hours ASA classification: III Emergent: no Anesthetic plan: proceed Anesthesia type and monitoring: general GIVS and standard monitoring Results Review: All pre-operative results and documents have been reviewed as part of the pre-operative evaluation. Informed Consent: The patient's anesthetic plan and its attendant risks and benefits were discussed with the patient/family/POA. Questions were solicited and answers provided to the satisfaction of the patient/family/POA.
[2025-01-01] MEDS: LACTATED RINGERS 1,000 ML 150 ML IV CONT (13:26)
--- NOTE | 2025-01-01 13:45 | PM.IMHP ---
H&P: HPI History of Present Illness Date/Time: 01/01/25 13:45 Chief Complaint: History of colon polyps Narrative: The patient has a history of colonic polyps, the last colonoscopy was in 2021, finding several tubular adenomas. Review of Systems Review of Systems: All systems reviewed & are unremarkable except as noted in HPI and below PMFSH Past Medical History Medical History A-fib SVT (supraventricular tachycardia) Surgical History Surgical History H/O umbilical hernia repair 12/16/21 History of inguinal hernia repair, bilateral b/l inguinal hernia repair w mesh davinci assisted 12/16/21 History of cardiac radiofrequency ablation Family History Family History Mother Cerebrovascular accident, Onset Age: 84 Unknown Cancer Social History Social History Social History: caffeine daily - 2 cups daily Smoking status: Never smoker Second hand tobacco smoke exposure: No Alcohol intake: current Drinks per week: 2 Alcohol use details: social Substance use: never Substance use type: does not use Do You Feel Safe in your Home?: Yes Lack of Transportation: No Lack of Food: Never True Current Housing: I Have Housing Concerned About Future Housing: No Difficulty Paying Gas/Electric Bills: No Difficulty Paying for Meds: No Currently Unemployed: No Difficulty w/ Childcare or Family Care: No Living arrangements: with family Occupation/Education: occupation Spiritual care concerns: No Meds Home Medications and Allergies Home Medications ?Medication ?Instructions ?Recorded ?Confirmed ?Type rivaroxaban 20 mg tablet (Xarelto) 20 mg PO DAILY 10/21/21 01/01/25 History sotalol 80 mg tablet (Betapace) 80 mg PO BID 10/21/21 01/01/25 History tamsulosin 0.4 mg capsule (Flomax) 0.4 mg PO DAILY 03/07/24 01/01/25 History CPAP #1 ea 04/20/24 12/22/24 Rx Allergies Allergy/AdvReac Type Severity Reaction Status Date / Time No Known Allergies Allergy Verified 01/01/25 13:16 Vital Signs Vital Signs - 24 hr 01/01/25 13:17 Temperature 96.8 F L Pulse Rate 70 Respiratory Rate 18 Blood Pressure 134/87 Pulse Oximetry 100 Oxygen Delivery Room Air Exam Const: General: cooperative and healthy appearing Resp: Effort & Inspection: normal respiratory effort and able to speak in complete sentences Auscultation: clear to auscultation bilaterally Cardio: Rate: regular rate Rhythm: regular rhythm GI: Inspection: normal to inspection GI Palp: No No hepatosplenomegaly present Auscultation: normal bowel sounds Rectal Exam: deferred Skin: General skin exam: normal color Psych: Appearance: grossly normal Mental Status: mental status grossly normal Assessment and Plan Assessment and plan (1) Colon cancer screening: Code(s): Z12.11 - Encounter for screening for malignant neoplasm of colon Status: Acute Assessment and Plan: The patient is deemed a good candidate for the procedure. Consent signed. Will proceed.
[2025-01-01 14:07] VITALS: BP 99/68; PULSE 69; RESP 19; O2SAT 99
[2025-01-01 14:17] VITALS: BP 111/74; PULSE 65; RESP 15; O2SAT 97
[2025-01-01 14:27] VITALS: BP 114/65; PULSE 73; RESP 16; O2SAT 97
== END 2025-01-01 14:47 | disposition home or self-care (01) ==
PROVIDERS: PCP Family Medicine; Referring Provider Internal Medicine Gastroenterology; Visit Provider Internal Medicine Gastroenterology
PROC: 0DJD8ZZ Inspection of Lower Intestinal Tract, Via Natural or Artificial Opening Endoscopic (ICD-10-PCS; CPT 45378; principal; 2025-01-01 14:00)
DX: Z12.11 Encounter for screening for malignant neoplasm of colon (principal); D12.2 Benign neoplasm of ascending colon; K63.5 Polyp of colon; I48.91 Unspecified atrial fibrillation; I47.10 Supraventricular tachycardia, unspecified
CPT/HCPCS: 45385; 88305; J2003; J2704; J7120